=== PATIENT | female | born 1945 | race Caucasian/White ===

== ENCOUNTER 2020-09-24 08:56 | Day surgery (SDC) | payer MEDICARE ==
[~2020-09-24] VITALS: Ht 165.1 cm; Wt 98.0 kg
[2020-09-24] MEDS ORDERED: ONDANSETRON 2MG/ML, 2ML ONE (09:29)
[2020-09-24] MEDS ORDERED: PROPOFOL 10 MG/ML, 20ML ONE (09:29)
[2020-09-24] MEDS ORDERED: DEXAMETHASONE 4 MG/ML, 1ML ONE (09:29)
[2020-09-24] MEDS ORDERED: CEFAZOLIN 1,000 MG ONE (09:29)
[2020-09-24] MEDS ORDERED: KETOROLAC 30 MG/1 ML ONE (09:29)
[2020-09-24] MEDS ORDERED: LACTATED RINGERS 1,000 ML IV SCH (12:00)
[2020-09-24] MEDS ORDERED: LIDOCAINE-MPF 1%, 2ML INFIL ONE (12:00)
[2020-09-24] MEDS ORDERED: CHLORHEXIDINE 15 ML UDC MM ONE (12:00)
[2020-09-24] MEDS ORDERED: IRBE150T9 PO (12:12)
[2020-09-24] MEDS ORDERED: CLOB15CR19 TP (12:12)
[2020-09-24] MEDS ORDERED: METH500T7 PO (12:12)
[2020-09-24] MEDS ORDERED: FLUT12AE INH (12:12)
[2020-09-24] MEDS ORDERED: METF500T17 PO (12:12)
[2020-09-24] MEDS ORDERED: SIMV20TA19 PO (12:12)
[2020-09-24 12:13] VITALS: BP 152/79
[2020-09-24 13:11] LABS: BASOPHILS % (AUTO) 1 % (0-1); EOSINOPHILS % (AUTO) 1 % (1-7); LYMPHOCYTES % (AUTO) 33 % (22-44); MEAN CORPUSCULAR HEMOGLOBIN 31.9 pg (27.0-34.8); MEAN CORPUSCULAR HGB CONC 33.9 g/dL (32.4-35.8); MEAN PLATELET VOLUME 8.5 fL (7.4-10.4); MONOCYTES % (AUTO) 5 % (2-9); NEUTROPHILS % (AUTO) 60 % (42-75); PLATELET COUNT 261 x10^3/uL (130-400); RED BLOOD COUNT 3.89 x10^6/uL (3.82-5.3); RED CELL DISTRIBUTION WIDTH 13.2 % (9.6-15.2)
[2020-09-24 13:15] LABS: MD NO
[2020-09-24 13:26] LABS: ALBUMIN 3.4 g/dL (3.4-5.0); ANION GAP 6 mmol/L (5-15); CALCIUM 9.3 mg/dL (8.5-10.1); CHLORIDE 109 mmol/L (98-107)
[2020-09-24 13:30] LABS: ALANINE AMINOTRANSFERASE 15 U/L (12-78); ALKALINE PHOSPHATASE 53 U/L (45-117); BILIRUBIN,TOTAL 0.3 mg/dL (0.2-1.0); CREATININE 0.85 mg/dL (0.55-1.02); TOTAL PROTEIN 7.5 g/dL (6.4-8.2)
[2020-09-24 13:34] LABS: INTERNATIONAL NORMALIZED RATIO 0.96 (0.93-1.1); PROTHROMBIN TIME 10.2 Seconds (9.6-11.5)
[2020-09-24] MEDS ORDERED: BUPIVACAINE/PF-EPI 0.5% 1:200K INFIL ONE (14:30)
[2020-09-24] MEDS ORDERED: PROMETHAZINE 25 MG/ML, 1ML IVPush PRN (15:00)
[2020-09-24] MEDS ORDERED: ONDANSETRON 2MG/ML, 2ML IVPush PRN (15:00)
[2020-09-24] MEDS ORDERED: FENTANYL PF 100 MCG/2ML IV PRN (15:00)
[2020-09-24] MEDS ORDERED: hydrALAzine 20 MG/ML, 1ML IV PRN (15:00)
[2020-09-24] MEDS ORDERED: HYDROmorphone 1 MG/ML, 1ML INJ IVPush PRN (15:00)
[2020-09-24] MEDS ORDERED: OXYcodone 5 MG/5 ML ORAL.SOL UDC PO PRN (15:00)
[2020-09-24] MEDS ORDERED: ACETAMINOPHEN 325 MG TABLET PO PRN (15:00)
[2020-09-24] MEDS ORDERED: LABETALOL 5MG/ML, 20ML IV PRN (15:00)
[2020-09-24] MEDS ORDERED: ACETAMINOPHEN 650 MG/20.3 ML UDC ONE (16:26)
[2020-09-24] MEDS ORDERED: FENTANYL PF 100 MCG/2ML ONE (16:43)
== END 2020-09-24 19:15 | disposition home or self-care (01) ==
LOC: OR 08:56 → OUT 19:15
PROVIDERS: ATTEND Surgery
DX: C50.212 Malignant neoplasm of upper-inner quadrant of left female breast (principal); E11.9 Type 2 diabetes mellitus without complications; I10 Essential (primary) hypertension; E78.00 Pure hypercholesterolemia, unspecified; E66.01 Morbid (severe) obesity due to excess calories; Z17.0 Estrogen receptor positive status [ER+]; Z20.828 Contact with and (suspected) exposure to other viral communicable diseases; Z68.35 Body mass index [BMI] 35.0-35.9, adult; Z79.01 Long term (current) use of anticoagulants; Z79.84 Long term (current) use of oral hypoglycemic drugs; Z79.899 Other long term (current) drug therapy; Z87.891 Personal history of nicotine dependence; Z91.048 Other nonmedicinal substance allergy status; Z90.49 Acquired absence of other specified parts of digestive tract; Z98.890 Other specified postprocedural states
CPT/HCPCS: 19281; 19285; 19301; 36415; 38525; 38792; 77065; 80053; 85025; 85610; 88305; 88307; 93005; A9541; J0171; J0690; J1100; J1885; J2250; J2405; J2704; J3010; J7120; U0003

== ENCOUNTER 2020-10-29 07:35 | Outpatient (CLI) | payer MEDICARE ==
[~2020-10-29 07:35] MED LIST: CLOB15CR19 TP; FLUT12AE INH; IRBE150T9 PO; METF500T17 PO; METH500T7 PO; SIMV20TA19 PO
== END 2020-10-29 23:59 | disposition home or self-care (01) ==
LOC: ROC 07:35
PROVIDERS: ATTEND Radiology Radiation Oncology
DX: C50.112 Malignant neoplasm of central portion of left female breast (principal); I10 Essential (primary) hypertension; E11.9 Type 2 diabetes mellitus without complications; E78.00 Pure hypercholesterolemia, unspecified; E66.01 Morbid (severe) obesity due to excess calories; Z68.35 Body mass index [BMI] 35.0-35.9, adult; Z17.0 Estrogen receptor positive status [ER+]; Z90.49 Acquired absence of other specified parts of digestive tract; Z79.84 Long term (current) use of oral hypoglycemic drugs; Z79.01 Long term (current) use of anticoagulants; Z79.899 Other long term (current) drug therapy; Z87.891 Personal history of nicotine dependence
CPT/HCPCS: 99214; G0463

== ENCOUNTER 2021-01-14 07:51 | Outpatient (CLI) | payer MEDICARE ==
[~2021-01-14 07:51] MED LIST changes: +METH-639 PO; -METH500T7 PO
== END 2021-01-14 23:59 | disposition home or self-care (01) ==
LOC: ROC 07:51
PROVIDERS: ATTEND Radiology Radiation Oncology
DX: C50.112 Malignant neoplasm of central portion of left female breast (principal); I10 Essential (primary) hypertension; E11.9 Type 2 diabetes mellitus without complications; E78.00 Pure hypercholesterolemia, unspecified; E66.01 Morbid (severe) obesity due to excess calories; Z17.0 Estrogen receptor positive status [ER+]; Z68.35 Body mass index [BMI] 35.0-35.9, adult; Z79.01 Long term (current) use of anticoagulants; Z79.899 Other long term (current) drug therapy; Z87.891 Personal history of nicotine dependence; Z79.84 Long term (current) use of oral hypoglycemic drugs
CPT/HCPCS: 99212; G0463